=== PATIENT | male | born 1975 | race Caucasian/White ===

== ENCOUNTER → 2023-08-04 09:00 | Outpatient (CLI) | payer OTHER, SELFPAY ==
[2023-08-04 10:19] LABS: Add Manual Diff / Slide Review NO; Basophils Absolute Auto 100 /uL (0-100); Basophils Percent Auto 1.2 % (0-2); Eosinophils Absolute Auto 800 /uL (0-450); Hematocrit 37.6 % (41-53); Hemoglobin 12.7 g/dL (13.5-17.5); Lymphocytes Absolute Auto 900 /uL (1100-4500); Lymphocytes Percent Auto 9.3 % (25-40); Mean Corpuscular HGB Conc 33.7 % (30-36); Mean Corpuscular Volume 83.2 fL (80-100); Monocytes Absolute Auto 800 /uL (0-900); Monocytes Percent Auto 8.3 % (3-14); Neutrophils Absolute Auto 6800 /uL (1500-7000); Neutrophils Percent Auto 72.2 % (50-75); Platelet Count 394 X10^3/uL (150-400); Red Blood Cell Count 4.52 X10^6/uL (4.5-5.9); Red Cell Distribution Width 14.1 % (11.6-14.8); White Blood Cell Count 9.5 X10^3/uL (4.5-11.0)
[2023-08-04 10:42] LABS: Alanine Aminotransferase 23 IU/L (<50); Albumin 3.7 g/dL (3.5-5.0); Albumin Globulin Ratio 1.1 (1.0-2.8); Alkaline Phosphatase 96 U/L (38-126); Aspartate Aminotransferase 23 IU/L (17-59); BUN Creatinine Ratio 13.1 (6-22); Bilirubin Total 0.5 mg/dL (0.2-1.3); Blood Urea Nitrogen 69 mg/dL (9-20); Calcium 8.8 mg/dL (8.4-10.2); Carbon Dioxide 28 mmol/L (22-32); Chloride 97 mmol/L (98-107); Cholesterol 191 mg/dL (140-199); Estimated Glomerular Filt Rate 13 mL/min (>60); Globulin 3.4 g/dL (1.7-4.1); Glucose 92 mg/dL (70-100); HDL Cholesterol 37 mg/dL (40-60); HEMOLYSIS < 15 (0-50); LDL Cholesterol Calculated 131 mg/dL (<100); Potassium 4.3 mmol/L (3.4-5.1); Sodium 136 mmol/L (137-145); Total Protein 7.1 g/dL (6.3-8.2); Triglycerides 113 mg/dL (35-150)
[2023-08-04 10:58] LABS: Appearance Urine UA CLEAR; Bilirubin Urine UA NEGATIVE (NEGATIVE); Color Urine UA YELLOW; Glucose Urine UA NEGATIVE (Negative); Ketones Urine UA NEGATIVE (NEGATIVE); Leukocyte Esterase Urine UA NEGATIVE (NEGATIVE); Nitrite Urine UA NEGATIVE (Negative); Occult Blood Urine UA 2+ (Negative); Protein Urine UA 2+ (Negative); Specific Gravity Urine UA 1.015 (1.000-1.035); Urobilinogen Urine UA 0.2 E.U./dL (0.2); pH Urine UA 5.5 (4.5-8.0)
[2023-08-04 11:09] LABS: Bacteria Urine Occasional (0-1); Culture Indicated Urine Cult Not Indicated; RBC Urine 1-5/HPF (0-5/HPF); Squamous Epithelial Cell Urine 0-1 /HPF (0-5/HPF); WBC Urine 0-1/HPF (0-5/HPF)
[2023-08-04 12:42] LABS: HEMOLYSIS < 15 (0-50); Iron 65 ug/dL (49-181)
[2023-08-04 12:53] LABS: Percent Iron Saturation 23 % (20-50); Total Iron Binding Capacity 282 ug/dL (261-462); Transferrin 233 mg/dL (206-381)
[2023-08-04 16:07] LABS: Vitamin D 25 Hydroxy (D3) 13.2 ng/mL (30.0-100.0)
[2023-08-04 16:09] LABS: Microalbumi Creatinin Ratio Ur 626.3 ug/mg CR (<30); Microalbumin Urine Random 45.1 mg/dL (0-1.6)
[2023-08-06 07:31] LABS: Calcium 8.8 mg/dL (8.7-10.2); Parathyroid Hormone, Intact 153 pg/mL (15-65)
== END ==
LOC: LAB 09:03
PROVIDERS: PCP Family Medicine; Referring Provider Family Medicine; Visit Provider Family Medicine
DX: H53.8 Other visual disturbances (principal); N18.9 Chronic kidney disease, unspecified; I10 Essential (primary) hypertension; Z00.00 Encounter for general adult medical examination without abnormal findings; N18.4 Chronic kidney disease, stage 4 (severe)
CPT/HCPCS: 36415; 80053; 80061; 81001; 82043; 82306; 82310; 82570; 83540; 83550; 83970; 85025

== ENCOUNTER → 2023-08-22 08:29 | Outpatient (CLI) | payer OTHER, SELFPAY ==
[2023-08-22 09:54] LABS: BUN Creatinine Ratio 12.9 (6-22); Blood Urea Nitrogen 54 mg/dL (9-20); Carbon Dioxide 20 mmol/L (22-32); Chloride 110 mmol/L (98-107); Estimated Glomerular Filt Rate 17 mL/min (>60); Glucose 91 mg/dL (70-100); HEMOLYSIS < 15 (0-50); Potassium 5.9 mmol/L (3.4-5.1); Sodium 139 mmol/L (137-145)
== END ==
PROVIDERS: PCP Family Medicine; Referring Provider Family Medicine; Visit Provider Family Medicine
DX: I12.9 Hypertensive chronic kidney disease with stage 1 through stage 4 chronic kidney disease, or unspecified chronic kidney disease (principal); N18.9 Chronic kidney disease, unspecified; J45.909 Unspecified asthma, uncomplicated
CPT/HCPCS: 36415; 80048

== ENCOUNTER → 2023-08-22 08:30 | Outpatient (CLI) | payer OTHER, SELFPAY | LOC: RESP 08:31 | PROVIDERS: PCP Family Medicine; Referring Provider Family Medicine; Visit Provider Family Medicine | DX: J45.909 Unspecified asthma, uncomplicated (principal); Z87.891 Personal history of nicotine dependence; I12.9 Hypertensive chronic kidney disease with stage 1 through stage 4 chronic kidney disease, or unspecified chronic kidney disease; N18.9 Chronic kidney disease, unspecified | CPT/HCPCS: 36415; 80048; 94060; 94726; 94729 ==

== ENCOUNTER 2023-08-22 10:15 | Emergency (ER) | payer OTHER, SELFPAY ==
[2023-08-22] VITALS (12 sets, daily range): BP systolic 174–219; BP diastolic 89–120; PULSE 79–89; RESP 16–26; TEMP 36.7; O2SAT 93–99; BMI 40.8
[2023-08-22 11:04] LABS: Add Manual Diff / Slide Review NO; Basophils Absolute Auto 100 /uL (0-100); Basophils Percent Auto 1.8 % (0-2); Eosinophils Absolute Auto 600 /uL (0-450); Eosinophils Percent Auto 7.1 % (2-4); Hemoglobin 12.5 g/dL (13.5-17.5); Lymphocytes Absolute Auto 1200 /uL (1100-4500); Lymphocytes Percent Auto 14.5 % (25-40); Mean Corpuscular Hemoglobin 27.8 PG (26-34); Mean Corpuscular Volume 84.2 fL (80-100); Monocytes Absolute Auto 700 /uL (0-900); Monocytes Percent Auto 8.7 % (3-14); Neutrophils Absolute Auto 5500 /uL (1500-7000); Neutrophils Percent Auto 67.9 % (50-75); Platelet Count 263 X10^3/uL (150-400); Red Blood Cell Count 4.51 X10^6/uL (4.5-5.9); Red Cell Distribution Width 14.8 % (11.6-14.8); White Blood Cell Count 8.1 X10^3/uL (4.5-11.0)
[2023-08-22 11:17] LABS: Alanine Aminotransferase 20 IU/L (<50); Albumin Globulin Ratio 1.1 (1.0-2.8); Alkaline Phosphatase 102 U/L (38-126); Aspartate Aminotransferase 20 IU/L (17-59); BUN Creatinine Ratio 13.3 (6-22); Bilirubin Total 0.5 mg/dL (0.2-1.3); Blood Urea Nitrogen 54 mg/dL (9-20); Calcium 8.7 mg/dL (8.4-10.2); Carbon Dioxide 18 mmol/L (22-32); Chloride 113 mmol/L (98-107); Estimated Glomerular Filt Rate 17 mL/min (>60); Globulin 3.7 g/dL (1.7-4.1); Glucose 94 mg/dL (70-100); HEMOLYSIS < 15 (0-50); Potassium 5.3 mmol/L (3.4-5.1); Sodium 138 mmol/L (137-145); Total Protein 7.7 g/dL (6.3-8.2)
--- NOTE | 2023-08-22 11:20 | DI.RAD.S_ITS ---
PROCEDURE: XR CHEST 2V INDICATIONS: htn TECHNIQUE: 2 views of the chest were acquired. COMPARISON: None. FINDINGS: Surgical changes and devices: None. Lungs and pleura: Mild bilateral perihilar opacity. No pleural effusions or pneumothorax. Mediastinum: Mediastinal contours are normal. Heart size is enlarged. Bones and chest wall: No suspicious bony abnormalities. Soft tissues appear unremarkable. IMPRESSION: Mild atypical pneumonia. Cardiomegaly. Dictated by: Lynn Llanos M.D. on 08/22/2023 at 11:44 Approved by: Lynn Llanos M.D. on 08/22/2023 at 11:45
[2023-08-22 11:49] LABS: NT-proBNP (BNP-Adult 18+) 1700 pg/mL (<125)
--- NOTE | 2023-08-22 12:01 | ED.GENADULT ---
HPI - General Adult General Chief complaint: Hypertension Stated complaint: sent by dr ana rose blood pressure high Time Seen by Provider: 08/22/23 10:19 Source: patient Mode of arrival: Ambulatory History of Present Illness HPI narrative: This is a 47-year-old male with known stage IV CKD. He is referred to the emergency department by his primary care provider secondary to an elevated potassium at 5.9. He was also hypertensive. Prior to being seen in his doctor's office, he did not take his regular daily 5 mg amlodipine. The patient tells me that his doctor increased his amlodipine from 5-10 mg a day. He is also on albuterol. The patient says when he takes his blood pressure medications his systolic pressures are typically around 160. He does not have chest pain or shortness of breath. He says he makes quite a bit a urine and is awaiting Nephrology consultation. Says he is scheduled with somebody down in [facility]. He has not having chest pain shortness of breath or severe headache. Related Data Home Medications Medication Instructions Recorded Confirmed albuterol sulfate 90 mcg/actuation 1 inh inhalation ONCE 08/04/23 08/04/23 aerosol inhaler nicotine (polacrilex) 2 mg gum 2 mg buccal Q6H 08/04/23 08/04/23 Previous Rx's Medication Instructions Recorded albuterol sulfate 2.5 mg/0.5 mL 2.5 mg (0.5 mL) inhalation Q20M 08/04/23 solution for nebulization #30 ea albuterol sulfate 90 mcg/actuation 2 puff inhalation Q6H PRN 08/04/23 aerosol inhaler shortness of breath or wheezing #8.5 grams amlodipine 5 mg tablet 5 mg PO DAILY #30 tabs 08/04/23 fluticasone furoate 200 1 inh inhalation DAILY #30 ea 08/04/23 mcg/actuation blister powder for inhalation amlodipine 10 mg tablet 10 mg PO DAILY #30 tabs 08/22/23 furosemide 40 mg tablet 40 mg PO DAILY #30 tabs 08/22/23 Allergies Allergy/AdvReac Type Severity Reaction Status Date / Time walnut Allergy Swelling Verified 08/22/23 10:38 of Lip/Tongue/Throat Patient History Medical History (Updated 08/22/23 @ 15:42 by Dawood Hameed MD) HLD (hyperlipidemia) Blurry vision CKD (chronic kidney disease) Asthma HTN (hypertension) (~2008) Family History (Updated 08/21/23 @ 18:07 by Rupa Nguyen) Father Hypertension Hyperlipidemia Mental health problem Mother History of heart disease Brother Hypertension Brother Cancer Hypertension Sister Hypertension Sister Hypertension Social History marital status: number of children: 3 household members: spouse occupational status: employed current occupational exposures/hazards: Yes Previous occupational history: pest control Smoking Status: Former smoker Smoking Status: Former smoker Substance Use Type: does not use Exam Initial Vital Signs Initial Vital Signs: Vital Signs Temperature 98.1 F 08/22/23 10:32 Pulse Rate 89 08/22/23 10:32 Respiratory Rate 18 08/22/23 10:32 Blood Pressure 203/120 H 08/22/23 10:32 Pulse Oximetry 99 08/22/23 10:32 Oxygen Delivery Method Room Air 08/22/23 10:32 Const General: No acute distress Neck Neck: supple and No JVD Resp Effort & Inspection: normal respiratory effort and able to speak in complete sentences Auscultation: wheezes and other (Good air movement with moderate wheezing) Cardio Other: Regular rhythm a rate no murmur rub or gallop GI Other: Obese soft and nontender no palpable mass Skin Other: Warm and dry Neuro General: patient alert and patient oriented x3 Course Orders Ordered: ED Orders 08/22/23 10:19 EKG-12 Lead Stat 08/22/23 10:54 CBC Auto Diff [Complete Blood Count AUTO DIFF] Stat CMP [Comprehensive Metabolic Panel] Stat 08/22/23 11:20 XR chest 2V Stat 08/22/23 11:24 BNP [NT-proBNP (BNP-Adult 18+)] Stat 08/22/23 14:38 BMP [Basic Metabolic Panel] Stat Discontinued Medications Albuterol (Albuterol 2.5 Mg/3 Ml Neb (Adult)) 2.5 mg INH NOW ONE Stop: 08/22/23 11:22 Last Admin: 08/22/23 13:46 Dose: 2.5 mg Documented By: SHIRA Amlodipine Besylate (Amlodipine 5 Mg Tablet) 10 mg PO NOW ONE Stop: 08/22/23 12:11 Last Admin: 08/22/23 12:17 Dose: 10 mg Documented By: ROBERT Furosemide 60 mg/ Sodium (Chloride) 56 mls @ 112 mls/hr IV NOW ONE Stop: 08/22/23 12:11 Last Infusion: 08/22/23 13:02 Dose: Infused Documented By: Admin: 08/22/23 12:18 Dose: 112 mls/hr Documented By: ROBERT Vital Signs Vital signs: Vital Signs - 8 hr 08/22/23 10:32 08/22/23 12:03 08/22/23 12:43 Temperature 98.1 F Pulse Rate 89 79 79 Respiratory Rate 18 16 20 Blood Pressure 203/120 H 208/112 H 194/104 H Pulse Oximetry 99 97 98 Oxygen Delivery Method Room Air Room Air 08/22/23 13:39 08/22/23 13:41 08/22/23 13:42 Temperature Pulse Rate 84 82 Respiratory Rate 20 26 H Blood Pressure 206/105 H 198/117 H Pulse Oximetry 96 93 Oxygen Delivery Method Room Air 08/22/23 13:42 08/22/23 13:49 08/22/23 14:01 Temperature Pulse Rate 81 80 80 Respiratory Rate 20 16 23 Blood Pressure Pulse Oximetry 98 98 96 Oxygen Delivery Method Room Air Room Air 08/22/23 14:01 08/22/23 14:31 08/22/23 15:00 Temperature Pulse Rate 89 86 Respiratory Rate Blood Pressure 219/119 H Pulse Oximetry 93 97 Oxygen Delivery Method 08/22/23 15:30 Temperature Pulse Rate 88 Respiratory Rate Blood Pressure Pulse Oximetry 97 Oxygen Delivery Method Medical Decision Making Lab Data Lab results narrative: Creatinine is 4.07 this is baseline, mild hyperkalemia at 5.34 potassium CBC with diff is unremarkable 08/22/23 10:54 08/22/23 14:38 Labs: Lab Results 08/22/23 08/22/23 08/22/23 Range/Units 10:54 11:24 14:38 WBC 8.1 (4.5-11.0) X10^3/uL RBC 4.51 (4.5-5.9) X10^6/uL Hgb 12.5 L (13.5-17.5) g/dL Hct 38.0 L (41-53) % MCV 84.2 (80-100) fL MCH 27.8 (26-34) PG MCHC 33.0 (30-36) % RDW 14.8 (11.6-14.8) % Plt Count 263 (150-400) X10^3/uL Neut % (Auto) 67.9 (50-75) % Lymph % (Auto) 14.5 L (25-40) % Norman % (Auto) 8.7 (3-14) % Eos % (Auto) 7.1 H (2-4) % Baso % (Auto) 1.8 (0-2) % Neut # (Auto) 5500 (8671-9826) /uL Lymph # (Auto) 1200 (4740-7743) /uL Norman # (Auto) 700 (0-900) /uL Eos # (Auto) 600 H (0-450) /uL Baso # (Auto) 100 (0-100) /uL Sodium 138 139 (137-145) mmol/L Potassium 5.3 H 4.9 (3.4-5.1) mmol/L Chloride 113 H 111 H (98-107) mmol/L Carbon Dioxide 18 L 19 L (22-32) mmol/L BUN 54 H 53 H (9-20) mg/dL Creatinine 4.07 H 3.97 H (0.66-1.25) mg/dL Estimated GFR 17 L 18 L (>60) mL/min BUN/Creatinine Ratio 13.3 13.4 (6-22) Glucose 94 92 (70-100) mg/dL Calcium 8.7 8.9 (8.4-10.2) mg/dL Total Bilirubin 0.5 (0.2-1.3) mg/dL AST 20 (17-59) IU/L ALT 20 (<50) IU/L Alkaline Phosphatase 102 (38-126) U/L NT-Pro-B Natriuret Pep 1700 H (<125) pg/mL Total Protein 7.7 (6.3-8.2) g/dL Albumin 4.0 (3.5-5.0) g/dL Globulin 3.7 (1.7-4.1) g/dL Albumin/Globulin Ratio 1.1 (1.0-2.8) Imaging Data Chest x-ray: My Impression: Mild interstitial prominence no definite infiltrate no clear fluid overload Radiologist's Impression: PROCEDURE: XR CHEST 2V INDICATIONS: htn TECHNIQUE: 2 views of the chest were acquired. COMPARISON: None. FINDINGS: Surgical changes and devices: None. Lungs and pleura: Mild bilateral perihilar opacity. No pleural effusions or pneumothorax. Mediastinum: Mediastinal contours are normal. Heart size is enlarged. Bones and chest wall: No suspicious bony abnormalities. Soft tissues appear unremarkable. IMPRESSION: Mild atypical pneumonia. Cardiomegaly. Dictated by: Lynn Llanos M.D. on 08/22/2023 at 11:44 Approved by: Lynn Llanos M.D. on 08/22/2023 at 11:45 MDM Narrative Medical decision making narrative: 47-year-old male with known chronic kidney disease presenting with hypertension and hyperkalemia. Reportedly had a potassium of 5.9 at an outside lab. Potassium is 5.3 on our labs here. After a dose of IV Lasix and some albuterol he is potassium is down and he is making urine. He remains hypertensive but he is asymptomatic. The patient is in the process of seeing a physical ther, in the meantime I have started him on oral furosemide in the hopes that this will help keep his potassium down. He is to follow up with Nephrology and primary care soon. Discharge Plan Departure Patient Disposition: Home Clinical Impression: Acute hyperkalemia HTN (hypertension) Qualifiers: Hypertension type: unspecified Qualified Code(s): I10 - Essential (primary) hypertension Activity Restrictions/Additional Instructions: Today, we were able to get your potassium down with IV furosemide. Your blood pressure remains high, continue your previously prescribed blood pressure medications. I have added furosemide which I am hoping will help both blood pressure and potassium. I also hope that you can get in and see a physical ther soon. If you are having chest pain increasing shortness of breath fevers nausea vomiting or other acute symptoms recheck in the emergency department. Take the prescribed potassium in the morning. I also recommend that you try to limit the potassium intake in your diet. I know that tomatoes and bananas her common dietary sources of potassium, an Internet search will likely be helpful in better understanding what foods you may want to avoid. Prescriptions: New furosemide 40 mg tablet 40 mg PO DAILY Qty: 30 0RF No Action nicotine (polacrilex) 2 mg gum 2 mg buccal Q6H albuterol sulfate 90 mcg/actuation HFA aerosol inhaler 1 inh inhalation ONCE fluticasone furoate 200 mcg/actuation blister with device 1 inh inhalation DAILY Qty: 30 1RF albuterol sulfate 90 mcg/actuation HFA aerosol inhaler 2 puff inhalation Q6H PRN (Reason: shortness of breath or wheezing) Qty: 8.5 2RF albuterol sulfate 2.5 mg/0.5 mL solution for nebulization 2.5 mg inhalation Q20M Qty: 30 2RF Rx Instructions: for up to 3 doses amlodipine 5 mg tablet 5 mg PO DAILY Qty: 30 1RF amlodipine 10 mg tablet 10 mg PO DAILY Qty: 30 1RF Referrals: Gabbie Shaikh MD [Primary Care Provider] - Stand Alone Forms: Patient Portal/API
[2023-08-22] MEDS: AMLODIPINE 5 MG TABLET 10 MG PO (12:17)
[2023-08-22] MEDS: FUROSEMIDE 60 MG in SODIUM CHLORIDE 0.9% 50 ML 112 MG IV (12:18)
[2023-08-22] MEDS: ALBUTEROL 2.5 MG/3 ML NEB (ADULT) INH (13:46)
[2023-08-22 14:55] LABS: BUN Creatinine Ratio 13.4 (6-22); Blood Urea Nitrogen 53 mg/dL (9-20); Calcium 8.9 mg/dL (8.4-10.2); Carbon Dioxide 19 mmol/L (22-32); Chloride 111 mmol/L (98-107); Estimated Glomerular Filt Rate 18 mL/min (>60); Glucose 92 mg/dL (70-100); HEMOLYSIS < 15 (0-50); Potassium 4.9 mmol/L (3.4-5.1); Sodium 139 mmol/L (137-145)
== END 2023-08-22 15:48 | disposition home or self-care (01) ==
PROVIDERS: Emergency Provider Emergency Medicine; PCP Family Medicine
DX: I12.9 Hypertensive chronic kidney disease with stage 1 through stage 4 chronic kidney disease, or unspecified chronic kidney disease (principal); E87.5 Hyperkalemia; N18.4 Chronic kidney disease, stage 4 (severe); Z87.891 Personal history of nicotine dependence; J45.909 Unspecified asthma, uncomplicated; N18.9 Chronic kidney disease, unspecified
CPT/HCPCS: 36415; 71046; 80048; 80053; 83880; 85025; 93005; 93010; 94060; 94726; 94729; 96365; 99284; J1940; J7613

== ENCOUNTER → 2023-10-12 14:44 | Outpatient (CLI) | payer OTHER, SELFPAY ==
--- NOTE | 2023-10-12 | DI.US.S_ITS ---
PROCEDURE: US RENAL COMPLETE INDICATIONS: CHRONIC KIDNEY DISEASE - STAGE 4 TECHNIQUE: Real-time scanning was performed of the kidneys and bladder, with image documentation. COMPARISON: None. FINDINGS: Kidneys: Right kidney is not visualized. Left kidney is normal in size and measures measures 11.6 cm long. Left renal cortical thickness is 2.2 cm. Renal cortical echotexture is normal. No hydronephrosis or nephrolithiasis. No suspicious solid mass lesions. Multiple simple cysts measuring up to 0.9 cm in the interpolar region. Bladder: Pre-void bladder volume is 5 mL, therefore no post-void residual volume was calculated. Limited prevoid images demonstrate no gross abnormalities. On pre-void images, bilateral ureteral jets are noted with color Doppler interrogation. (Of note, ureteral jets may not be detectable in up to 25% of cases due to insufficient differences in specific gravity between ureteral and bladder urine). Miscellaneous: No free pelvic fluid. IMPRESSION: Technically limited exam due to patient factors. Normal sonographic appearance of the left kidney. No hydronephrosis or nephrolithiasis. Right kidney is not visualized, which may be due to renal agenesis per patient provided history. If clinically appropriate, further evaluation with cross-sectional imaging can be performed. Bladder is underdistended on prevoid images limiting evaluation for postvoid residual volume. No gross abnormalities visualized. Bilateral ureteral jets visualized. Approved by: Elsa Walker M.D. on 10/13/2023 at 9:44
== END ==
PROVIDERS: PCP Family Medicine; Referring Provider Internal Medicine Nephrology; Visit Provider Internal Medicine Nephrology
DX: N17.8 Other acute kidney failure (principal); N18.4 Chronic kidney disease, stage 4 (severe)
CPT/HCPCS: 76770